=== PATIENT | female | born 1960 | race Two or more races ===

== ENCOUNTER 2024-08-12 13:32 | Outpatient (RCR) | payer MEDICAID, SELFPAY ==
--- NOTE | 2024-08-12 16:11 | PT.OIERPT ---
PT OP Initial Eval Patient Information Outpatient Physical Therapy Treatment Date: 08/12/24 Visit Reasons: LEFT SHOULDER PAIN Medical Diagnosis: Left Shoulder Pain Treatment Dx #1: Left Shoulder Pain Treatment Dx #2: Left Shoulder Mobility Deficits Start of Care: 08/12/24 Date of Onset: 1 year ago Smoking Status Smoking Status: Never smoker Initial Assessment Subjective: Pt is a 64 y/o female report of chronic left shoulder pain insidious onset. Pt denies of trauma or injury to the shoulder. No imaging has been done thus far. Pt has limitation with self care, cooking, cleaning, chores, and performing recreational activities Objective: Left Shoulder AROM Flexion: 30 deg with pain Abduction: 45 deg with pain ER and IR: unable Left Shoulder PROM Flexion: 60 deg with pain Abduction: 50 deg with pain ER and IR: unable Left Shoulder MMTs: grossly 2-/5 Left Scapula MMTs: grossly 2-/5 Palpation: TTP supraspinatus tendon Assessment: Pt demonstrate left shoulder mobility and strength deficits with high shoulder irritability. Pt will no benefit from physical therapy and recommend further imaging prior to attempting physical therapy safely. Pt was evaluated and d/c from care. Pt advised to return back to provider for further consultation; thank you for your referrals. [employer] Goals 1) Eval and D/C 2) Follow up with provider and recommend further imaging Treatment Plan Eval and D/C Frequency and Duration: 1x Certification Dates: 08/12/24 to 11/12/24 Procedure Charges OP PT Eval Mod Complex 30 minutes: Yes
== END 2024-08-30 23:59 | disposition home or self-care (01) ==
LOC: CPTX 13:32
PROVIDERS: PCP Nurse Practitioner Family; Referring Provider Nurse Practitioner Family; Visit Provider Nurse Practitioner Family
DX: M25.512 Pain in left shoulder (principal)
CPT/HCPCS: 97162

== ENCOUNTER → 2025-07-16 | Outpatient (CLI) | payer MEDICAID, SELFPAY ==
--- NOTE | 2025-07-16 10:30 | XR_ITS ---
MRI shoulder, left, without contrast. Date and time: July 16, 2025, 1113 hours INDICATIONS: Left shoulder pain decreased range of motion and weakness in the arm 2 years Technique: Multiple axial, sagittal and coronal sections of the shoulder have been obtained. Siemens high-resolution 1.5 Jammie MRI scanner is utilized. Axial fat-suppressed sections, TR 2350, TE 18 T2-weighted coronal fat-saturated images, TR 3500, TE 7100 T1-weighted coronal images, TR 500, TE 15 T2-weighted sagittal fat-saturated images, TR 3500, TE 57 T1-weighted sagittal sections, TR 504, TE 13. Findings: Supraspinatus tendon insertion is intact. Infraspinatus tendon insertion is intact. Subscapularis insertion is intact. Subscapularis bursa is not seen. Long head of the biceps is in the bicipital groove. No definite tear of the biceps superior labral anchor is seen. Retraction of the musculotendinous junction of the rotator cuff is not seen . Tendinosis pattern is moderate. Distance between the acromium and humeral head is 5.2 mm Atrophy of the supraspinatus muscle is moderate. Atrophy of the infraspinatus muscle is mild. Sagittal sections demonstrate a horizontal acromion. Acromioclavicular joint demonstrates moderate osteoarthritis. Osacromiale is not identified. Mild fraying and irregularity posterior labral margins. Bony glenoid fossa on the sagittal sections does not demonstrate osseous defect. Occult fracture or area of avascular necrosis is not seen. Acromioclavicular joint separation is not visible. Defect in the posterolateral margin of the humeral head is not seen Impression: Rotator cuff intact Moderate rotator cuff tendinosis Mild fraying and irregularity posterior labral margins
== END | disposition home or self-care (01) ==
LOC: SMRI 10:19
PROVIDERS: PCP Physician Assistant; Referring Provider Physician Assistant; Visit Provider Physician Assistant
DX: M67.814 Other specified disorders of tendon, left shoulder (principal); M25.812 Other specified joint disorders, left shoulder
CPT/HCPCS: 73221